=== PATIENT | female | born 1980 | race African-American/Black ===

== ENCOUNTER 2016-10-10 17:13 | Emergency (ER) | payer MEDICAID, OTHER ==
[~2016-10-10] VITALS: Ht 162.6 cm; Wt 148.8 kg
[2016-10-10 17:13] VITALS: BP 103/44; PULSE 92; RESP 19; TEMP 97.1; O2SAT 94
--- NOTE | 2016-10-10 17:13 | NUR ---
ASSUMED PT. CARE, IN BED 5, SIDERAILS UP, REPORT RECEIVED FROM RAQUEL KENT
--- NOTE | 2016-10-10 17:15 | NUR ---
PT. TO ER [facility] BROUGHT IN BY EMS FOR ETOH INTOXICATION, STATES SHE DRANK 1/5 BOTTLE GIN, WANTS DETOX, STATES THAT SHE DRINKS DAILY, WANTS TO QUIT BUT UNACLE TO, STATES SHE WANTS DETOX, IN BED, NO OTHER COMLAINTS, DENIES SOB, DENIES CHEST PAIN
--- NOTE | 2016-10-10 17:30 | NUR ---
DR. CHACKO AT BEDSIDE EXAMINING THE PT.
--- NOTE | 2016-10-10 18:00 | NUR ---
PT. EATING, VERBALIZES COMFORT, VITALS STABLE
--- NOTE | 2016-10-10 19:05 | NUR ---
PT. ASLEEP AT THIS TIMES, VITALS STABLE, NO NAUSEA, NO VOMITING
--- NOTE | 2016-10-10 20:05 | NUR ---
Pt in bed, no sign of distress noted.
[2016-10-10 20:14] LABS: BASOPHILS # (AUTO) 0.1 K/uL (0.0-0.2); EOSINOPHILS # (AUTO) 0.7 K/uL (0.0-0.4); EOSINOPHILS % (AUTO) 4.9 % (0.0-4.0); HEMATOCRIT 35.5 % (36-48); HEMOGLOBIN 11.7 g/dL (12.0-16.0); LYMPHOCYTES # (AUTO) 3.3 K/uL (1.0-5.5); LYMPHOCYTES % (AUTO) 23.3 % (20.5-51.5); MEAN CORPUSCULAR HEMOGLOBIN 27 pg (27-31); MEAN CORPUSCULAR HGB CONC 33 % (32-36); MEAN CORPUSCULAR VOLUME 82 fL (79.0-98.0); MONOCYTES # (AUTO) 0.8 K/uL (0.0-1.0); MONOCYTES % (AUTO) 5.8 % (1.7-9.3); NEUTROPHILS # (AUTO) 9.3 K/uL (1.8-7.7); PLATELET COUNT (AUTO) 446 K/uL (130-430); RED BLOOD CELL COUNT(AUTO) 4.34 MIL/uL (4.2-6.2); RED CELL DISTRIBUTION WIDTH 17.1 % (9.0-15.0); WHITE BLOOD COUNT (AUTO) 14.2 K/uL (4.8-10.8)
[2016-10-10 20:18] LABS: SALICYLATE 4 mg/dL (3-30)
[2016-10-10 20:22] LABS: ALANINE AMINOTRANSFERASE 23 U/L (12-78); ALBUMIN 3.5 g/dL (3.4-4.8); ANION GAP 14 (5-15); ASPARTATE AMINOTRANSFERASE 22 U/L (10-37); CHLORIDE 102 mmol/L (98-107); CREATININE 1.18 mg/dL (0.55-1.30); GLUCOSE 118 mg/dL (70-99); POTASSIUM 3.9 mmol/L (3.5-5.1); SODIUM SERUM 139 mmol/L (136-145); TOTAL BILIRUBIN 0.1 mg/dL (0.0-1.0); TOTAL PROTEIN, SERUM 8.1 g/dL (6.4-8.3)
[2016-10-10 20:32] LABS: GFR AFRICAN AMERICAN 66 mL/min (>90)
[2016-10-10 20:33] LABS: ACETAMINOPHEN < 1 ug/mL (1-30)
[2016-10-10 20:53] LABS: UREA NITROGEN, BLOOD 26 mg/dL (8-21)
[2016-10-10] MEDS ORDERED: AMMONIA INHALANT 0.3mL AMPUL INH ONE (21:03)
[2016-10-10] MEDS ORDERED: ALBUTEROL SULFATE 0.083% 2.5 MG/3 ML VIAL.NEB IH ONE (22:00)
[2016-10-10] MEDS ORDERED: IPRATROPIUM BROM 0.5 MG/2.5 ML VIAL.NEB (ATROVENT) IH ONE (22:00)
--- NOTE | 2016-10-10 22:06 | NUR ---
RT at bedside performing breathing tx
--- NOTE | 2016-10-10 22:30 | NUR ---
Attempted to walk pt, pt was not able to ambulate. aware, stated to continue to monitor
--- NOTE | 2016-10-10 23:00 | NUR ---
Pt resting comfortably in bed , VSS, will continue to monitor
--- NOTE | 2016-10-11 00:05 | NUR ---
Pt in bed, no distress noted. Appeared resting comfortably in bed
--- NOTE | 2016-10-11 00:05 | NUR ---
Attempted to ambulate and arouse pt, pt appeared sleepy and unable to stand or ambulate. MD hackett notified, stated to continue monitoring
--- NOTE | 2016-10-11 01:10 | NUR ---
Pt appeared resting in bed, no sign of distress
--- NOTE | 2016-10-11 02:10 | NUR ---
Pt in bed, care attended and need assessed. Will continue to monitor
--- NOTE | 2016-10-11 02:30 | NUR ---
Pt appeared asleep, unable to stand or ambulate, stated " I feel tired and dizzy". MD Coe aware. WIll continue to monitor
--- NOTE | 2016-10-11 03:15 | NUR ---
Pt in bed , VSS, snoring noted. No sign of distress
--- NOTE | 2016-10-11 04:30 | NUR ---
Pt appeared resting in bed, VSS.
--- NOTE | 2016-10-11 05:35 | NUR ---
Pt appeared resting comfortably in bed, no acute distress noted
--- NOTE | 2016-10-11 06:31 | NUR ---
Pt resting in bed, no sign of distress
--- NOTE | 2016-10-11 06:45 | NUR ---
Pt able to ambulate without assistance, denies dizziness. Stated she will go to [facility] for further evaluation
[2016-10-11 06:50] VITALS: BP 112/67; PULSE 87; RESP 16; TEMP 97.6; O2SAT 100
--- NOTE | 2016-10-11 06:50 | NUR ---
Patient given written and verbal discharge instructions and verbalizes understanding. ER MD Coe discussed with patient the results and treatment provided.Patient in stable condition. ID arm band removed. IV catheter removed intact and dressing applied, no active bleeding. No Rx given. Patient educated on pain management and to follow up with PMD. Pain Scale 0/10 Opportunity for questions provided and answered.
== END 2016-10-11 06:50 | disposition home or self-care (01) ==
LOC: SED 17:13
DX: F10.129 Alcohol abuse with intoxication, unspecified (principal); E11.9 Type 2 diabetes mellitus without complications; I10 Essential (primary) hypertension
CPT/HCPCS: 36415; 80053; 85025; 94640; 99284; G0480; G0481; G0482